=== PATIENT | female | born 1950 | race Caucasian/White ===

== ENCOUNTER 2020-09-20 17:40 | Emergency (ER) | payer MEDICARE, SELFPAY ==
--- NOTE | ~2020-09-20 | XR_ITS ---
EXAMINATION: XR ankle RT min 3V DATE: 09/20/2020 18:35 INDICATION: Right ankle injury. TECHNIQUE: 4 views of right ankle were obtained. COMPARISON: None. FINDINGS: Bone alignment is normal. No fracture. Joint spaces are well maintained. There is an enthes ophyte at plantar aspect of calcaneal tuberosity. Ankle soft tissue swelling is noted. IMPRESSION: 1. No fracture. Reviewed, dictated and finalized at location A. IMPRESSION: 1. No fracture.
--- NOTE | ~2020-09-20 | XR_ITS ---
EXAMINATION: XR foot RT min 3V DATE: 09/20/2020 18:35 INDICATION: Right foot injury and pain. TECHNIQUE: 4 views of right foot were obtained. COMPARISON: None. FINDINGS: Bone alignment is normal. No fracture. There is mild osteoarthritis of first metatarsophala ngeal joint and some of the interphalangeal joints. There is moderate to severe osteoarthritis of the second through fourth proximal and distal interphalangeal joints. There is an enthesophyte at planta r aspect of calcaneal tuberosity. IMPRESSION: 1. Polyarticular osteoarthritis. Reviewed, dictated and finalized at location A.
[2020-09-20 17:55] VITALS: BP 168/68; PULSE 68; RESP 18; TEMP 36.7; O2SAT 98
[2020-09-20 18:09] VITALS: BP 168/68; PULSE 68; RESP 18; TEMP 36.7; O2SAT 98
--- NOTE | 2020-09-20 18:39 | ED.LOWEXIN ---
HPI - Extremity Injury (Lower) General Chief Complaint: Extremity Injury, Lower Stated Complaint: right ankle injury Time Seen by Provider: 09/20/20 18:35 Source: patient and RN notes reviewed Mode of arrival: ambulatory Limitations: no limitations History of Present Illness HPI Narrative: 69-year-old female presents concern for right ankle, foot injury. Reports prior to arrival she slipped on liquid in her kitchen, causing her foot and ankle to slide forward. She reports pain and swelling gradually happened after that. She denies intervention. She denies decreased drink, sensation, range of motion. MD complaint: ankle injury Related Data Home Medications Medication Instructions Recorded Confirmed acebutolol mg 09/20/20 escitalopram oxalate mg 09/20/20 levothyroxine [Synthroid] 09/20/20 rosuvastatin mg 09/20/20 Allergies Allergy/AdvReac Type Severity Reaction Status Date / Time azithromycin Allergy Unknown Verified 09/20/20 18:08 codeine Allergy Unknown Verified 09/20/20 18:08 Sulfa (Sulfonamide Allergy Unknown Verified 09/20/20 18:08 Antibiotics) Contrast Media Allergy Unknown Uncoded 09/20/20 18:08 Review of Systems Review of Systems: Narrative: CONSTITUTIONAL: Denies malaise, chills, sweats, or fever. CARDIOVASCULAR: Denies chest pain, palpitations, or edema. RESPIRATORY: Denies dyspnea. SKIN: Denies abrasions, lacerations, bruising, redness MUSCULOSKELETAL: Reports right ankle swelling, pain with weightbearing NEUROLOGIC: Denies numbness, weakness All systems reviewed & are unremarkable except as noted in HPI and below PMFSH Comments At time of signature, agree with nursing past medical, surgical, social and family history. There is no relevant family history pertinent to the presenting complaint Exam Narrative: Exam Narrative: GENERAL: Well-appearing, well-nourished, and in no acute distress. HEAD: Normocephalic, atraumatic. EYES: PERRLA, conjunctivae clear NECK: Supple. CHEST: Speaks in full sentences. No respiratory distress. HEART: Regular rate and rhythm. Normal and equal peripheral pulses. EXTREMITIES: Right ankle, foot, digits have normal strength and sensation, normal range of motion. Mild edema, no erythema or ecchymosis. 5/5 strength with ankle and digit flexion and extension. Normal sensation with sensitivity to light touch and pain. No point tenderness. No open wounds, no skin tenting, no devitalized tissue or atrophy, no trophic changes, no obvious deformity, alignment normal, nearby joints and structures intact. Distal pulses palpable and equal bilaterally, skin warm, dry, pink. Capillary refill less than 3 seconds. SKIN: Warm, dry, no rash. NEURO: Alert and oriented x3. PSYCH: Normal mood and affect Course Course Emergency Course: Patient is aware of diagnosis, understands and agrees to treatment plan. Anticipatory guidance given. Patient agrees to follow-up as directed and is aware of reasons to seek care at the emergency department. Portions of this record may have been created with voice recognition software Vital Signs Vital signs: Vital Signs Temperature 98.1 F 09/20/20 17:55 Pulse Rate 68 09/20/20 17:55 Respiratory Rate 18 09/20/20 17:55 Blood Pressure 168/68 H 09/20/20 17:55 Pulse Oximetry 98 09/20/20 17:55 Temperature 98.1 F 09/20/20 18:09 Pulse Rate 68 09/20/20 18:09 Respiratory Rate 18 09/20/20 18:09 Blood Pressure 168/68 H 09/20/20 18:09 Pulse Oximetry 98 09/20/20 18:09 Reviewed. MDM - Extremity Injury (Lower) MDM Narrative Medical decision making narrative: Patients injury and pain is consistent with musculoskeletal etiology. No signs of neurological or vascular compromise on exam. Compartments and tissues are soft without signs of compartment syndrome. Pain is felt appropriate for further evaluation on an outpatient basis. Imaging Data Radiologist's impression: EXAMINATION: XR ankle RT min 3V DATE: 09/20/2020 18:35 I
== END 2020-09-20 19:00 | disposition home or self-care (01) ==
PROVIDERS: Emergency Provider Nurse Practitioner; PCP Internal Medicine
DX: S93.401A Sprain of unspecified ligament of right ankle, initial encounter (principal); S96.911A Strain of unspecified muscle and tendon at ankle and foot level, right foot, initial encounter; W01.0XXA Fall on same level from slipping, tripping and stumbling without subsequent striking against object, initial encounter; E78.00 Pure hypercholesterolemia, unspecified; I10 Essential (primary) hypertension; E03.9 Hypothyroidism, unspecified; F41.9 Anxiety disorder, unspecified; K21.9 Gastro-esophageal reflux disease without esophagitis; Z95.0 Presence of cardiac pacemaker
CPT/HCPCS: 73610; 73630; 99203; G0463